=== PATIENT | male | born 1975 | race Caucasian/White ===

== ENCOUNTER 2022-05-23 11:14 | Emergency (ER) | payer OTHER, SELFPAY ==
[2022-05-23 11:31] VITALS: BP 114/83; PULSE 112; RESP 20; TEMP 37.9; O2SAT 99
--- NOTE | 2022-05-23 12:09 | ED.URI ---
HPI - URI/Sore Throat General Chief Complaint: Upper Respiratory Infection Stated Complaint: cold symptoms Source: patient Mode of arrival: ambulatory Limitations: no limitations History of Present Illness HPI Narrative: 47-year-old male presents to [facility] in with cough, congestion, runny nose and low-grade fever since yesterday. Patient reports that his children were recently ill with similar symptoms. patient denies shortness of breath, wheezing, nausea, vomiting or diarrhea. Patient has been taking [id number] ibuprofen with minimal relief. Patient has not received an influenza vaccine MD elicited complaint: fever, cough, rhinorrhea and nasal congestion Onset (ago): day(s) (1) Able to tolerate fluids by mouth: Yes Treatments prior to arrival: ibuprofen Related Data Home Medications Medication Instructions Recorded Confirmed lisinopril 20 1 tablet DAILY 05/23/22 05/23/22 mg-hydrochlorothiazide 12.5 mg tablet Allergies Allergy/AdvReac Type Severity Reaction Status Date / Time No Known Allergies Allergy Verified 05/23/22 11:39 Review of Systems Constitutional: Constitutional: Reports chills, Denies fatigue and Reports fever(s) ENT: Denies vertigo and Denies dizziness Respiratory: Respiratory: Denies chest congestion, Reports cough, Denies dyspnea and Denies wheezing Gastrointestinal: Gastrointestinal: Denies abdominal pain, Denies diarrhea, Denies nausea and Denies vomiting Integumentary/Breasts: Skin/Breast: Denies rash Neurologic: Denies dizziness Allergic/Immunologic: Allergic/Immunologic: Denies lip swelling, Denies throat swelling, Denies tongue swelling and Denies wheezing PMFSH Comments At time of signature, I agree with nursing past medical, surgical, social and family history. There is no relevant family history pertinent to the presenting complaint. Exam Const: General: healthy appearing Nutritional Appearance: well nourished Orientation/consciousness: patient oriented x3 Limitations: no limitations HENMT: Head: normal to inspection Ears: external ears normal and TM's normal bilaterally Face/Nose/Sinus: Normal external nose present Face and sinus: normal facial exam and sinuses nontender Mouth: Yes Normal oral and palatal mucosa present Teeth and gingiva: dentition normal Throat: posterior oropharynx normal and uvula midline Eyes: Conjunctivae: conjunctivae normal Neck: Neck: normal visual inspection Resp: Effort & Inspection: normal respiratory effort and not labored Auscultation: clear to auscultation bilaterally, no crackles, no rales, no rhonchi and no wheezes Cardio: Rate: regular rate Rhythm: regular rhythm Heart sounds: no murmurs Skin: General skin exam: normal color Rashes: no rashes Wounds: no wounds Neuro: General: patient oriented x3 Cranial nerves: Yes Nystagmus not present Speech: normal speech Gait exam (Neuro): Normal gait present Psych: Mental Status: mental status grossly normal Affect: normal affect Attitude: cooperative Course Course Level of Care: Express Care Visit Vital Signs Vital signs: Vital Signs Temperature 37.9 C H 05/23/22 11:31 Pulse Rate 112 H 05/23/22 11:31 Respiratory Rate 20 05/23/22 11:31 Blood Pressure 114/83 05/23/22 11:31 Pulse Oximetry 99 05/23/22 11:31 Oxygen Delivery Room Air 05/23/22 11:31 Temperature 37.9 C H 05/23/22 12:29 Pulse Rate 112 H 05/23/22 11:31 Respiratory Rate 20 05/23/22 11:31 Blood Pressure 114/83 05/23/22 11:31 Pulse Oximetry 99 05/23/22 11:31 Oxygen Delivery Room Air 05/23/22 11:31 MDM - URI/Sore Throat MDM Narrative Medical decision making narrative: Discussed positive influenza results with patient. Patient understands that he is to self quarantine. Patient agrees to take Tamiflu as prescribed and tests positive for cough. Patient reached proceed to the emergency room if symptoms worsen Differential Diagnosis Differential diagnosis: Un
[2022-05-23 12:29] VITALS: TEMP 37.9
[2022-05-23] MEDS: ACETAMINOPHEN 500 MG TABLET 1000 MG PO (12:29)
== END 2022-05-23 12:33 | disposition home or self-care (01) ==
PROVIDERS: Emergency Provider Nurse Practitioner Family
DX: J10.1 Influenza due to other identified influenza virus with other respiratory manifestations (principal); I10 Essential (primary) hypertension
CPT/HCPCS: 87804; 99203; A9270; G0463

== ENCOUNTER 2022-08-31 09:56 | Emergency (ER) | payer OTHER, SELFPAY ==
--- NOTE | 2022-08-31 10:06 | ED.NAVMDI ---
HPI - Nausea/Vomiting/Diarrhea General Chief complaint: Nausea/Vomiting/Diarrhea Stated complaint: Diarrhea,Headache Time Seen by Provider: 08/31/22 10:15 Source: patient Mode of arrival: ambulatory Limitations: no limitations History of Present Illness HPI Narrative: Shawn is a 47-year-old male patient presenting to the clinic today with complaints of diarrhea and headache that occurred on the 15th and 16th of this month. He reports that those symptoms have resolved however he is requesting a work note. He states that he is also feeling depressed. Reports that he had been on bupropion in the past for depression but has not been on for approximately 3 years. He states that he feels as though he is becoming more depressed. He denies any thoughts of self-harm, suicide, or homicide. He feels as though it is just hard to get up in the morning and get going and he just wants to lie in bed. Related Data Home Medications Medication Instructions Recorded Confirmed lisinopril 20 1 tablet DAILY 05/23/22 08/31/22 mg-hydrochlorothiazide 12.5 mg tablet Allergies Allergy/AdvReac Type Severity Reaction Status Date / Time No Known Allergies Allergy Verified 05/23/22 11:39 Review of Systems Review of Systems: Pertinent positives per HPI. Patient denies any fever, chills, rash, headache, visual changes, dizziness, cough, shortness of breath, chest pain, palpitations, nausea, vomiting, diarrhea, constipation, abdominal pain, or any urinary issues. PMFSH Comments At the time of my signature, I reviewed and agree with the nursing past medical, surgical, social, and family history. There is no relevant family history pertinent to the patient complaint. Exam Narrative: General: Well-developed, well nourished, in no apparent distress Head: Normocephalic, atraumatic Eyes: Pupils equally round and reactive to light bilaterally, EOM intact, sclera and conjunctive clear, no discharge, lids normal Ears: TMs intact and clear, ear canals clear, no drainage, grossly hearing normal. Nose: Nares patent, no discharge, no inflammation, no sinus tenderness. Mouth: Oral pharynx without lesions or masses, good dentition, MMM. Neck: Supple, trachea midline, no enlargement of anterior or posterior cervical nodes, no thyroid masses or goiter palpable. Cardio: Regular rate and rhythm, s1 and s2 normal, no murmur appreciated. Resp: Clear to auscultation bilaterally, no rhonchi, rales, wheezing or rubs Abdomen: Soft, pliable, nondistended, bowel sounds present all 4 quadrants, no organomegaly, nontender to palpation, no CVAT tenderness Psych: Mood-sad with depressed affect, intact judgment with poor insight Course Course Emergency Course: Portions of this record may have been created with voice recognition software. Level of Care: Express Care Visit Vital Signs Vital signs: Vital Signs Temperature 36.2 C L 08/31/22 10:11 Pulse Rate 114 H 08/31/22 10:11 Respiratory Rate 18 08/31/22 10:11 Blood Pressure 149/112 H 08/31/22 10:11 Pulse Oximetry 99 08/31/22 10:11 Oxygen Delivery Room Air 08/31/22 10:11 Temperature 36.2 C L 08/31/22 10:11 Pulse Rate 114 H 08/31/22 10:11 Respiratory Rate 18 08/31/22 10:11 Blood Pressure 149/112 H 08/31/22 10:11 Pulse Oximetry 99 08/31/22 10:11 Oxygen Delivery Room Air 08/31/22 10:11 Vital signs reviewed MDM - Nausea/Vomiting/Diarrhea MDM Narrative Medical decision making narrative: At the time of visit patient is resting comfortably on exam table. I suspect patient has a resolving viral syndrome/gastroenteritis. Concern today is depression. I will place him back on his bupropion 100 mg twice daily and recommend he follow-up with a PCP for further evaluation-continuation of medications. Crisis line information was discussed. Made aware that these medications will take time 4-6 weeks to get to his system and be at a therapeutic level, supportive measures were di
[2022-08-31 10:11] VITALS: BP 149/112; PULSE 114; RESP 18; TEMP 36.2; O2SAT 99
== END 2022-08-31 10:18 | disposition home or self-care (01) ==
PROVIDERS: Emergency Provider Nurse Practitioner Family
DX: K52.9 Noninfective gastroenteritis and colitis, unspecified (principal); B34.9 Viral infection, unspecified; F32.A Depression, unspecified; I10 Essential (primary) hypertension
CPT/HCPCS: 99213; G0463

== ENCOUNTER 2023-03-01 10:02 | Outpatient (CLI) | payer OTHER, SELFPAY ==
[2023-03-01 14:25] LABS: Basophils Percent Auto 0.7 % (0.2-1.2); Eosinophils Absolute Auto 0.2 K/mm3 (0-0.3); Eosinophils Percent Auto 3.3 % (0-4.4); Hemoglobin 15.5 g/dL (14.0-18.0); Immature Granulocyte Absolute 0.01 K/mm3 (0.00-0.031); Immature Granulocyte Percent A 0.2 % (0-0.5); Lymphocytes Absolute Auto 1.52 K/mm3 (0.9-3.2); Lymphocytes Percent Auto 26.3 % (18.3-44.2); Mean Corpuscular HGB Conc 33.7 g/dl (32-36); Mean Corpuscular Hemoglobin 32.3 pg (26-34); Mean Corpuscular Volume 95.8 fl (80-100); Mean Platelet Volume 10.1 fl (7.4-10.4); Monocytes Absolute Auto 0.5 K/mm3 (0.1-0.6); Monocytes Percent Auto 8.8 % (2.6-8.5); Neutrophils Absolute Auto 3.5 K/mm3 (1.3-6.7); Neutrophils Percent Auto 60.7 % (45.5-73.1); Platelet Count Result 211 k/mm3 (150-375); Red Cell Distribution Width 11.9 % (11.5-14.5); White Blood Count 5.8 K/mm3 (4.5-10.0)
[2023-03-01 14:28] LABS: Potassium 4.2 mmol/L (3.4-5.0); Sodium 135 mmol/L (137-145)
[2023-03-01 14:29] LABS: Alanine Aminotransferase 71 U/L (6-50); Albumin Level 4.1 g/dL (3.5-5.1); Alkaline Phosphatase 77 U/L (38-126); Anion Gap 1 mmol/L (8-16); Aspartate Amino Transferase 60 U/L (17-59); Bilirubin,Total 0.9 mg/dL (0.2-1.3); Blood Urea Nitrogen 11 mg/dL (9-20); Calcium 8.9 mg/dL (8.4-10.2); Carbon Dioxide 31 mmol/L (22-30); Chloride 103 mmol/L (98-107); Cholesterol 211 mg/dL (0-200); Estimated Glomerular Filt Rate > 60; Glucose 94 mg/dL (65-110); HDL Direct 42 mg/dL; Triglycerides 273 mg/dL (<150)
[2023-03-01 14:40] LABS: LDL Cholesterol Direct 124 mg/dL
== END 2023-03-01 10:03 | disposition home or self-care (01) ==
LOC: ANHGOSHLAB 10:04
PROVIDERS: PCP Family Medicine; Visit Provider Family Medicine
DX: R53.83 Other fatigue (principal); I10 Essential (primary) hypertension; Z13.220 Encounter for screening for lipoid disorders
CPT/HCPCS: 36415; 80053; 80061; 85025

== ENCOUNTER 2023-03-22 08:55 | Outpatient (CLI) | payer OTHER, SELFPAY ==
[2023-03-22 13:21] LABS: Sodium 137 mmol/L (137-145)
[2023-03-22 13:22] LABS: Alanine Aminotransferase 52 U/L (6-50); Albumin Level 4.1 g/dL (3.5-5.1); Alkaline Phosphatase 65 U/L (38-126); Anion Gap 6 mmol/L (8-16); Aspartate Amino Transferase 48 U/L (17-59); Bilirubin,Total 0.7 mg/dL (0.2-1.3); Blood Urea Nitrogen 12 mg/dL (9-20); Calcium 9.1 mg/dL (8.4-10.2); Carbon Dioxide 30 mmol/L (22-30); Chloride 101 mmol/L (98-107); Estimated Glomerular Filt Rate > 60; Glucose 90 mg/dL (65-110); Potassium 3.8 mmol/L (3.4-5.0)
== END 2023-03-22 08:56 | disposition home or self-care (01) ==
PROVIDERS: PCP Family Medicine; Visit Provider Family Medicine
DX: Z13.228 Encounter for screening for other metabolic disorders (principal)
CPT/HCPCS: 36415; 80053

== ENCOUNTER 2023-10-04 12:16 | Emergency (ER) | payer OTHER, SELFPAY ==
--- NOTE | ~2023-10-04 | XR_ITS ---
EXAMINATION: XR hip BI 2V w AP pelvis DATE: 10/04/2023 13:04 INDICATION: Right hip pain. Fall. TECHNIQUE: An anteroposterior view of the pelvis and 2 views of each hip were obtained. COMPARISON: None. FINDINGS: There is a transcervical fracture right femoral neck. The distal fracture fragment demonstr ates 12 mm anterior displacement and 17 mm shortening. There is mild osteoarthritis of the hips. IMPRESSION: 1. Transcervical fracture of right femoral neck. 2. Mild osteoarthritis of the hips. Reviewed, dictated and finalized at location E.
[2023-10-04 12:17] VITALS: BP 152/79; PULSE 72; RESP 20; TEMP 36.4; O2SAT 99
[2023-10-04] MEDS: HYDROmorphone HCL INJ (*CRX) 1 MG/ML SYR IV PUSH ×2 (12:35→14:48)
[2023-10-04] MEDS: ONDANSETRON INJ 4 MG/2 ML VIAL IV PUSH (12:35)
[2023-10-04 12:50] LABS: Basophils Percent Auto 0.3 % (0.2-1.2); Eosinophils Absolute Auto 0.1 K/mm3 (0-0.3); Eosinophils Percent Auto 1.8 % (0-4.4); Hematocrit 43.6 % (42.0-52.0); Hemoglobin 14.7 g/dL (14.0-18.0); Immature Granulocyte Absolute 0.02 K/mm3 (0.00-0.031); Immature Granulocyte Percent A 0.3 % (0-0.5); Lymphocytes Absolute Auto 0.71 K/mm3 (0.9-3.2); Lymphocytes Percent Auto 10.7 % (18.3-44.2); Mean Corpuscular HGB Conc 33.7 g/dl (32-36); Mean Corpuscular Volume 94.8 fl (80-100); Monocytes Absolute Auto 0.3 K/mm3 (0.1-0.6); Monocytes Percent Auto 4.5 % (2.6-8.5); Neutrophils Absolute Auto 5.5 K/mm3 (1.3-6.7); Neutrophils Percent Auto 82.4 % (45.5-73.1); Platelet Count Result 156 k/mm3 (150-375); Red Cell Distribution Width 12.8 % (11.5-14.5); White Blood Count 6.6 K/mm3 (4.5-10.0)
[2023-10-04 13:01] LABS: Alanine Aminotransferase 37 U/L (6-50); Albumin Level 4.3 g/dL (3.5-5.1); Alkaline Phosphatase 94 U/L (38-126); Anion Gap 8 mmol/L (4-12); Aspartate Amino Transferase 52 U/L (17-59); Bilirubin,Total 1.2 mg/dL (0.2-1.3); Blood Urea Nitrogen 17 mg/dL (9-20); Calcium 9.5 mg/dL (8.4-10.2); Carbon Dioxide 23 mmol/L (22-30); Chloride 106 mmol/L (98-107); Estimated CRCL calculation 82 ml/min; Estimated Glomerular Filt Rate > 60; Glucose 122 mg/dL (65-110); Potassium 3.8 mmol/L (3.4-5.0); Sodium 137 mmol/L (137-145)
[2023-10-04 13:08] LABS: Prothrombin Time 13.2 Seconds (11.1-14.7)
[2023-10-04 14:10] VITALS: BP 139/90; PULSE 69; RESP 16; O2SAT 100
--- NOTE | 2023-10-04 14:30 | ED.LOWEXIN ---
HPI - Extremity Injury (Lower) General Chief Complaint: Extremity Injury, Lower Stated Complaint: hip injury Time Seen by Provider: 10/04/23 12:24 Related Data Allergies Allergy/AdvReac Type Severity Reaction Status Date / Time No Known Allergies Allergy Verified 07/05/23 15:11 Review of Systems Review of Systems: All systems reviewed & are unremarkable except as noted in HPI and below Constitutional: Constitutional: Reports no additional constitutional complaints Eyes: Eyes: Reports no additional eye complaints ENT: Reports system reviewed and no additional complaints, except as documented Cardiovascular: Cardiovascular: Reports no additional cardiovascular complaints Respiratory: Respiratory: Reports no additional respiratory complaints Musculoskeletal: Musculoskeletal: Reports as per HPI Integumentary/Breasts: Skin/Breast: Reports system reviewed and no additional complaints, except as docu Neurologic: Reports system reviewed and no additional complaints, except as documented [facility] Past Medical History Medical History HTN (hypertension) Family History Family History Father Hypertension Social History Social History Smoking status: Former smoker Smoking end date: 07/11/08 Alcohol intake: current Drinks per week: 18 Substance use: never Substance use type: does not use Current Housing: Decline to Answer Concerned About Future Housing: Decline to Answer Difficulty Paying Gas/Electric Bills: Decline to Answer Difficulty Paying for Meds: Decline to Answer Currently Unemployed: Decline to Answer Education: Decline to Answer Difficulty w/ Childcare or Family Care: Decline to Answer Exam Narrative: GENERAL: Well-appearing, well-nourished, and in no acute distress. HEAD: Normocephalic, atraumatic. EYES: PERRLA and EOMI. ENT: Nares clear, no rhinorrhea or epistaxis. Mucous membranes moist. NECK: Supple. CHEST: Clear to auscultation. No respiratory distress. HEART: Regular rate and rhythm. No murmur heard. Normal peripheral pulses. ABDOMEN: Soft, nontender, nondistended, normal active bowel sounds. EXTREMITIES: Normal range of motion. No edema. SKIN: Warm, dry, no rash. NEURO: No focal deficits. Alert and oriented x3. PSYCH: Normal mood and affect. Course Vital Signs Vital signs: Vital Signs Temperature 36.4 C L 10/04/23 12:17 Pulse Rate 72 10/04/23 12:17 Respiratory Rate 20 10/04/23 12:17 Blood Pressure 152/79 H 10/04/23 12:17 Pulse Oximetry 99 10/04/23 12:17 Oxygen Delivery Room Air 10/04/23 12:17 Temperature 36.4 C L 10/04/23 12:17 Pulse Rate 72 10/04/23 15:18 Respiratory Rate 17 10/04/23 15:18 Blood Pressure 136/97 H 10/04/23 15:18 Pulse Oximetry 99 10/04/23 15:18 Oxygen Delivery Room Air 10/04/23 12:17 MDM - Extremity Injury (Lower) Lab Data 10/04/23 12:43 10/04/23 12:43 Labs: Lab Results 10/04/23 Range/Units 12:43 WBC 6.6 (4.5-10.0) K/mm3 RBC 4.60 (4.6-6.20) M/mm3 Hgb 14.7 (14.0-18.0) g/dL Hct 43.6 (42.0-52.0) % MCV 94.8 (80-100) fl MCH 32.0 (26-34) pg MCHC 33.7 (32-36) g/dl RDW 12.8 (11.5-14.5) % Plt Count 156 (150-375) k/mm3 MPV 10.0 (7.4-10.4) fl Immature Gran % (Auto) 0.3 (0-0.5) % Neut % (Auto) 82.4 H (45.5-73.1) % Lymph % (Auto) 10.7 L (18.3-44.2) % [place] % (Auto) 4.5 (2.6-8.5) % Eos % (Auto) 1.8 (0-4.4) % Baso % (Auto) 0.3 (0.2-1.2) % Lymph # (Auto) 0.71 L (0.9-3.2) K/mm3 [place] # (Auto) 0.3 (0.1-0.6) K/mm3 Eos # (Auto) 0.1 (0-0.3) K/mm3 Baso # (Auto) 0.0 (0.0-0.1) K/mm3 Abs Immat Gran (auto) 0.02 (0.00-0.031) K/mm3 Absolute Neuts (auto) 5.5 (1.3-6.7) K/mm3 Absolute Nucleated RBC 0.000 (0.0-0.012) K/mm3 Nucleated RBC % 0.0 (0.0-0.2)
--- NOTE | 2023-10-04 14:31 | ED.LOWEXIN ---
HPI - Extremity Injury (Lower) General Chief Complaint: Extremity Injury, Lower Stated Complaint: hip injury Time Seen by Provider: 10/04/23 12:24 Source: patient Mode of arrival: EMS Limitations: no limitations History of Present Illness HPI Narrative: 48-year-old with a history of hypertension presents to the ER with a complaint of right hip pain. Patient states that he was skating on ice fell on his right hip he stated that he felt a pop in his hip I unable to bear weight. She denies any head or neck injuries. MD complaint: hip injury Place: street/outdoors Severity: moderate Relieving factors: immobilization Exacerbating factors: movement Context: fall Associated symptoms: snap/pop sensation Other symptoms: none Related Data Allergies Allergy/AdvReac Type Severity Reaction Status Date / Time No Known Allergies Allergy Verified 07/05/23 15:11 Review of Systems Review of Systems: All systems reviewed & are unremarkable except as noted in HPI and below Constitutional: Constitutional: Reports no additional constitutional complaints Eyes: Eyes: Reports no additional eye complaints ENT: Reports system reviewed and no additional complaints, except as documented Cardiovascular: Cardiovascular: Reports no additional cardiovascular complaints Respiratory: Respiratory: Reports no additional respiratory complaints Gastrointestinal: Gastrointestinal: Reports no additional gastrointestinal complaints Musculoskeletal: Musculoskeletal: Reports as per HPI Integumentary/Breasts: Skin/Breast: Reports system reviewed and no additional complaints, except as docu Neurologic: Reports system reviewed and no additional complaints, except as documented Psychiatric: Psychiatric: Reports no additional psychiatric complaints PMFSH Past Medical History Medical History HTN (hypertension) Family History Family History Father Hypertension Social History Social History Smoking status: Former smoker Smoking end date: 07/11/08 Alcohol intake: current Drinks per week: 18 Substance use: never Substance use type: does not use Current Housing: Decline to Answer Concerned About Future Housing: Decline to Answer Difficulty Paying Gas/Electric Bills: Decline to Answer Difficulty Paying for Meds: Decline to Answer Currently Unemployed: Decline to Answer Education: Decline to Answer Difficulty w/ Childcare or Family Care: Decline to Answer Exam Narrative: He GENERAL: Well-appearing, well-nourished, and in no acute distress. HEAD: Normocephalic, atraumatic. EYES: PERRLA and EOMI. ENT: Nares clear, no rhinorrhea or epistaxis. Mucous membranes moist. NECK: Supple. CHEST: Clear to auscultation. No respiratory distress. HEART: Regular rate and rhythm. No murmur heard. Normal peripheral pulses. ABDOMEN: Soft, nontender, nondistended, normal active bowel sounds. EXTREMITIES: Marked tenderness in the right hip with gentle movement. SKIN: Warm, dry, no rash. NEURO: No focal deficits. Alert and oriented x3. PSYCH: Normal mood and affect. Course Course Emergency Course: Patient states his pain is slightly improved with fentanyl and IV hydromorphone. Informed about his lab work, x-ray findings. I discussed with Dr. Grant recommended patient to be transferred to [facility]. I did discuss with at [facility] accepted pt. Family was notified . Vital Signs Vital signs: Vital Signs Temperature 36.4 C L 10/04/23 12:17 Pulse Rate 72 10/04/23 12:17 Respiratory Rate 20 10/04/23 12:17 Blood Pressure 152/79 H 10/04/23 12:17 Pulse Oximetry 99 10/04/23 12:17 Oxygen Delivery Room Air 10/04/23 12:17 Temperature 36.4 C L 10/04/23 12:17 Pulse Rate 69 10/04/23 14:10 Respiratory Rate 16 10/04/23 14:10 Blood Pressure 13
--- NOTE | 2023-10-04 14:44 | PC.NURSE ---
Pt reports having increased pain. made aware. Dr. Aide DUMONT 1mg dilaudid IVP stat.
--- NOTE | 2023-10-04 14:45 | PC.NURSE ---
TARIQ Dunbar called for report at [facility]
[2023-10-04 15:18] VITALS: BP 136/97; PULSE 72; RESP 17; O2SAT 99
== END 2023-10-04 15:50 | disposition short-term general hospital (02) ==
PROVIDERS: Emergency Provider Family Medicine; PCP Family Medicine
DX: S72.001A Fracture of unspecified part of neck of right femur, initial encounter for closed fracture (principal); I10 Essential (primary) hypertension; V00.211A Fall from ice-skates, initial encounter
CPT/HCPCS: 36415; 73502; 73521; 80053; 85025; 85610; 96374; 96375; 96376; 99285; J1170; J2405

== ENCOUNTER 2024-03-23 11:46 | Emergency (ER) | payer OTHER, SELFPAY ==
[2024-03-23 12:16] VITALS: BP 138/97; PULSE 117; RESP 16; TEMP 36.7; O2SAT 97
--- NOTE | 2024-03-23 12:40 | ED.BACK ---
HPI - Back Pain/Injury General Chief Complaint: Back Pain/Injury Stated Complaint: Back spasm Time Seen by Provider: 03/23/24 12:41 Source: patient, RN notes reviewed and old records reviewed Mode of arrival: ambulatory Limitations: no limitations History of Present Illness HPI Narrative: 48 year [facility] male [facility] with complaints of lower back pain with some radiation of pain to his right buttock and to his right groin area for the past 2 days. Patient report no known injury to his back does do a lot of walking at work but no recent heavy lifting. Patient fell on the ice in September of this year and had right femoral neck fracture and had surgery at [facility] with bolt,Plate and screw repair to right hip. Patient reports that it feels like he is having some spasms in his low back area.Patient has been taking some Ibuprofen and some Aleve for his symptoms. MD elicited complaint: back pain Pertinent past history: prior back pain Onset (ago): day(s) (2) Pain scale (0-10): 4 Quality: aching and spasming Treatments prior to arrival: NSAIDS Work related injury: No Related Data Allergies Allergy/AdvReac Type Severity Reaction Status Date / Time No Known Allergies Allergy Verified 03/23/24 12:34 Review of Systems Review of Systems: CONSTITUTIONAL: Denies fever, chills, or sweats. EYES: Denies visual changes, redness, or discharge. ENT: Denies rhinorrhea, congestion, sore throat, or otalgia. CARDIOVASCULAR: Denies chest pain, palpitations, or edema. RESPIRATORY: Denies cough or dyspnea. GASTROINTESTINAL: Denies abdominal pain, nausea, vomiting, or diarrhea. GENITOURINARY: Denies dysuria or hematuria. SKIN: Denies rash or itching. MUSCULOSKELETAL: reports low back pain with radiation right buttock and to right groin,no other joint pain, or myalgia. NEUROLOGIC: Denies headache, numbness, or weakness. PSYCHIATRIC: Denies anxiety or depression. All systems reviewed & are unremarkable except as noted in HPI and below PMFSH Past Medical History Medical History (Updated 03/23/24 @ 17:47 by Claritza Musa NP) Depression HTN (hypertension) Surgical History Surgical History History of hip surgery Family History Family History Father Hypertension Social History Social History Smoking status: Former smoker Smoking end date: 07/11/08 Alcohol intake: current Drinks per week: 18 Substance use: never Substance use type: does not use Current Housing: Decline to Answer Concerned About Future Housing: Decline to Answer Difficulty Paying Gas/Electric Bills: Decline to Answer Difficulty Paying for Meds: Decline to Answer Currently Unemployed: Decline to Answer Education: Decline to Answer Difficulty w/ Childcare or Family Care: Decline to Answer Comments At time of signature, agree with nursing past medical, surgical, social and family history. There is no relevant family history pertinent to the presenting complaint Exam Narrative: GENERAL: Well-appearing, well-nourished, and in no acute distress. HEAD: Normocephalic, atraumatic. EYES: PERRLA and EOMI. ENT: Nares clear, no rhinorrhea or epistaxis. Mucous membranes moist. NECK: Supple. no lymphadenopathy CHEST: Clear to auscultation. No respiratory distress.SAO2 97% on room air HEART: Regular rate and rhythm. No murmur heard. Normal peripheral pulses. ABDOMEN: Soft, nontender, nondistended, normal active bowel sounds. EXTREMITIES: Normal range of motion. No edema.positive for low back pain with some radiation to right buttock and right groin, denies any saddle parasthesia or any difficulty with bowel or bladder function, gait steady on ambulation. reports spasms to lower back SKIN: Warm, dry, no rash. NEURO: No focal deficits. Alert and oriented x3. Course Course Ro
== END 2024-03-23 13:00 | disposition home or self-care (01) ==
PROVIDERS: Emergency Provider Registered Nurse; PCP Family Medicine
DX: M54.41 Lumbago with sciatica, right side (principal); Z87.891 Personal history of nicotine dependence; I10 Essential (primary) hypertension
CPT/HCPCS: 99213; G0463

== ENCOUNTER 2024-05-11 11:48 | Emergency (ER) | payer OTHER, SELFPAY ==
--- NOTE | 2024-05-11 11:54 | ED_ITS ---
HPI - Back Pain/Injury General Chief Complaint: Back Pain/Injury Stated Complaint: Back Pain Time Seen by Provider: 05/11/24 12:02 Source: patient, RN notes reviewed and old records reviewed Mode of arrival: ambulatory Limitations: no limitations History of Present Illness HPI Narrative: 49-year-old male presents to the [facility] with 4 day history of increased right lower back pain. Recent femoral head fracture, recently seen for similar. Denies any of retention of bowel or bladder. No midline tenderness. Denies any abdominal pain. Walks with a mild limp 2nd to previous hip surgery, right Denies any fevers. Onset (ago): day(s) (4) Related Data Home Medications Medication Instructions Recorded Confirmed Enclomiphene See Rx Instructions .Route .COMPLEX 05/11/24 05/11/24 testosterone cypionate 200 mg/mL 200 mg IM WEEKLY 05/11/24 05/11/24 intramuscular oil Allergies Allergy/AdvReac Type Severity Reaction Status Date / Time No Known Allergies Allergy Verified 05/11/24 11:56 Review of Systems Review of Systems: All systems reviewed & are unremarkable except as noted in HPI and below Constitutional: Constitutional: Reports no additional constitutional complaints ENT: Reports system reviewed and no additional complaints, except as documented Cardiovascular: Cardiovascular: Reports no additional cardiovascular complaints, Denies chest pain and Denies dyspnea Respiratory: Respiratory: Reports no additional respiratory complaints, Denies chest congestion, Denies cough and Denies dyspnea Gastrointestinal: Gastrointestinal: Reports no additional gastrointestinal complaints, Denies abdominal pain, Denies nausea and Denies vomiting Musculoskeletal: Musculoskeletal: Reports as per HPI and Reports back pain Integumentary/Breasts: Skin/Breast: Reports system reviewed and no additional complaints, except as docu PMFSH Past Medical History Medical History Depression HTN (hypertension) Surgical History Surgical History History of hip surgery Family History Family History Father Hypertension Social History Social History Smoking status: Former smoker Smoking end date: 07/11/08 Alcohol intake: current Drinks per week: 18 Substance use: never Substance use type: does not use Current Housing: Decline to Answer Concerned About Future Housing: Decline to Answer Difficulty Paying Gas/Electric Bills: Decline to Answer Difficulty Paying for Meds: Decline to Answer Currently Unemployed: Decline to Answer Education: Decline to Answer Difficulty w/ Childcare or Family Care: Decline to Answer Comments At the time of my signature, I reviewed and agree with the nursing past medical, surgical, social, and family history. There is no relevant family history pertinent to the patient complaint. Exam Const: General: cooperative, healthy appearing, comfortable, no acute distress, well developed, alert and well nourished Nutritional Appearance: well nourished Orientation/consciousness: patient oriented x3 Limitations: no limitations HENMT: Head: normal to inspection Ears: hearing grossly normal bilaterally and external ears normal Face/Nose/Sinus: Normal external nose present, normal facial exam and face symmetric Face and sinus: normal facial exam and face symmetric Eyes: General: appearance normal, both eyes and all related structures Alignment and Position: alignment normal Periorbital: periorbital findings normal Neck: Neck: normal visual inspection, full ROM, no lymphadenopathy and no meningeal signs Chest: Chest palpation & inspection: normal inspection of the chest Resp: Effort & Inspection: normal respiratory effort and able to speak in complete sentences Cardio: Rate: regular rate GI: GI Palp: No abdominal tenderness Back/Spine/Pelvis: Back: no CVA tenderness Thoracic/Lumbar Spine: paraspinal muscle tenderness on the right in the lower lumbar, No thoracic spinal tenderness and No lumbar spinal tenderness Skin: General skin exam: normal color and no rashes or lesions noted Lesions: no lesions Rashes: no rashes Wounds: no wounds Neuro: General: patient oriented x3, tone normal, moves all extremities and no meningeal signs Cognition (Neuro): normal cognition Speech: normal speech Gait exam (Neuro): gait abnormal (Mild limp favoring right side) Extrem: General: normal to inspection, full ROM and capillary refill normal Psych: Appearance: grossly normal and well kempt Mental Status: mental status grossly normal Speech and movement: Normal speech and movement present and Clear speech present Affect: normal affect Attitude: cooperative Course Course Level of Care: Express Care Visit Vital Signs Vital signs: Vital Signs Temperature 98.2 F 05/11/24 12:00 Pulse Rate 95 05/11/24 12:00 Respiratory Rate 18 05/11/24 12:00 Blood Pressure 141/93 H 05/11/24 12:00 Pulse Oximetry 99 05/11/24 12:00 Oxygen Delivery Room Air 05/11/24 12:00 Temperature 98.2 F 05/11/24 12:01 Pulse Rate 95 05/11/24 12:01 Respiratory Rate 18 05/11/24 12:01 Blood Pressure 141/93 H 05/11/24 12:01 Pulse Oximetry 99 05/11/24 12:01 Oxygen Delivery Room Air 05/11/24 12:01 Reviewed MDM - Back Pain/Injury MDM Narrative Medical decision making narrative: Patient sitting comfortably in exam room. Nontoxic, vitals stable. Patient presents with an acute on chronic right low back pain. Patient also requesting a work note dated 2 days ago. Patient stated that if he does not have 1 that he will be fired from his job. Explained to patient that we cannot alter medical documents. Explained to patient I would be happy to give him a note for today with an additional couple of days off. Offered to send in additional muscle relaxers, patient states that he has enough at home. Patient left upset that we are unable to alter a work note, dated for 2 days ago Discharge instructions reviewed with patient, as well as provided in writing per nursing staff. The instructions also include specific and strict return/GO TO THE ER as well as f/u information. All questions have been answered, and the patient deny any further questions with discharge and discharge plan. Some parts of this dictation were generated by voice recognition software and may contain typographical and/or grammatical inaccuracies. Differential Diagnosis Differential diagnosis: Likely lumbar radiculopathy, sciatica and strain of lumbar region Critical Care Time Critical Care Time Critical Care Time: No Discharge Plan Discharge Clinical Impression: Right lumbar pain Patient Disposition: Home, Self-Care Condition: Stable Instructions: Antibiotic Form, Low Back Strain (ED), Lower Back Exercises (ED) Additional Instructions: Take ibuprofen as directed to decrease inflammation and to help pain. Take Flexeril (muscle relaxer) as directed. Do not drink, drive, operate machinery, or do anything dangerous while taking this medication Exercise:Combine aerobic exercise, like walking or swimming, with specific exercises to keep the muscles in your back and abdomen strong and flexible. Proper Lifting:Be sure to lift heavy items with your legs, not your back. Do not bend over to pick something up. Keep your back straight and bend at your knees. Weight:Maintain a healthy weight. Being overweight puts added stress on your lower back. Avoid Smoking:Both the smoke and the nicotine cause your spine to age faster than normal. Proper Posture:Good posture is important for avoiding future problems. A therapist can teach you how to safely stand, sit, and lift. Use warm moist heat to help with pain. Using topical such as Biofreeze, Zeeshan-Carrasco or Aspercreme can also help Follow up with Primary provider in 2-3 days, This may become a chronic condition and they will be the one to help manage your pain and order additional testing. Go to the nearest ER if you develop problems with bladder/bowel function, weakness or loss of feeling in one or both of your legs. Patient Language: Slovenian Prescriptions: No Action testosterone cypionate 200 mg/mL oil 200 mg IM WEEKLY Enclomiphene See Rx Instructions .ROUTE .COMPLEX Rx Instructions: 25 mg orally ;complex directions lisinopril-hydrochlorothiazide 20-12.5 mg tablet 1 tablet PO DAILY Qty: 90 1RF Follow-up/Referrals: Herbert Adrian DO [Primary Care Provider] - 1 Week ([facility] follow-up) Stand Alone Forms: Work/School Release IP Time of Disposition: 12:19
[2024-05-11 12:00] VITALS: BP 141/93; PULSE 95; RESP 18; TEMP 36.8; O2SAT 99
[2024-05-11 12:01] VITALS: BP 141/93; PULSE 95; RESP 18; TEMP 36.8; O2SAT 99
== END 2024-05-11 12:20 | disposition home or self-care (01) ==
PROVIDERS: Emergency Provider Nurse Practitioner; PCP Family Medicine
DX: M54.50 Low back pain, unspecified (principal); Z87.891 Personal history of nicotine dependence; I10 Essential (primary) hypertension
CPT/HCPCS: 99212; G0463

== ENCOUNTER 2024-11-28 08:10 | Outpatient (CLI) | payer OTHER, SELFPAY ==
[2024-11-28 13:02] LABS: Hematocrit 54.1 % (42.0-52.0); Hemoglobin 17.6 g/dL (14.0-18.0); Mean Corpuscular HGB Conc 32.5 g/dl (32-36); Mean Corpuscular Hemoglobin 30.4 pg (26-34); Mean Corpuscular Volume 93.6 fl (80-100); Mean Platelet Volume 10.7 fl (7.4-10.4); Platelet Count Result 230 k/mm3 (150-375); Red Blood Count 5.78 M/mm3 (4.6-6.20); Red Cell Distribution Width 13.2 % (11.5-14.5); White Blood Count 5.9 K/mm3 (4.5-10.0)
[2024-11-28 13:33] LABS: Alanine Aminotransferase 53 U/L (6-50); Albumin Level 4.8 g/dL (3.5-5.1); Alkaline Phosphatase 62 U/L (38-126); Anion Gap 12 mmol/L (4-12); Aspartate Amino Transferase 66 U/L (17-59); Bilirubin,Total 0.9 mg/dL (0.2-1.3); Blood Urea Nitrogen 18 mg/dL (9-20); Calcium 9.8 mg/dL (8.4-10.2); Carbon Dioxide 25 mmol/L (22-30); Chloride 106 mmol/L (98-107); Cholesterol 209 mg/dL (0-200); Estimated Glomerular Filt Rate 60; Glucose 80 mg/dL (65-110); HDL Direct 34 mg/dL; Potassium 4.5 mmol/L (3.4-5.0); Sodium 143 mmol/L (137-145); Triglycerides 129 mg/dL (<150)
[2024-11-28 13:44] LABS: LDL Cholesterol Direct 138 mg/dL
== END 2024-11-28 08:11 | disposition home or self-care (01) ==
LOC: ANHGOSHLAB 08:10
PROVIDERS: PCP Nurse Practitioner Family; Visit Provider Nurse Practitioner Family
DX: E78.5 Hyperlipidemia, unspecified (principal); I10 Essential (primary) hypertension; R73.01 Impaired fasting glucose; E66.9 Obesity, unspecified; Z76.89 Persons encountering health services in other specified circumstances; Z13.29 Encounter for screening for other suspected endocrine disorder
CPT/HCPCS: 36415; 80053; 80061; 84443; 85027

== ENCOUNTER 2025-04-19 11:33 | Emergency (ER) | payer OTHER, SELFPAY ==
[2025-04-19 11:43] VITALS: BP 141/96; PULSE 103; RESP 18; TEMP 36.7; O2SAT 95
--- NOTE | 2025-04-19 11:56 | ED_ITS ---
HPI - Back Pain/Injury General Chief Complaint: Back Pain/Injury Stated Complaint: back pain Time Seen by Provider: 04/19/25 11:56 Source: patient Mode of arrival: ambulatory Limitations: no limitations History of Present Illness HPI Narrative: 50 y/o male presented for c/o right lower back pain. Onset one week. Endorses he has these flares of pain occasionally due to a previous hip fracture 1 year ago, and usually the pain resolves after about 5 days of taking NSAIDs. Has been taking ibuprofen and aleve but pain has persisted. Denies pain radiating into the hips or legs, numbness, tingling, weakness of the lower extremities, or change in gait, saddle paresthesia or loss of bowel or bladder. Related Data Allergies Allergy/AdvReac Type Severity Reaction Status Date / Time No Known Allergies Allergy Verified 04/19/25 11:42 Review of Systems Review of Systems: CONSTITUTIONAL: Denies body aches, fever, chills CARDIOVASCULAR: Denies chest pain, palpitations, or edema. RESPIRATORY: Denies cough or dyspnea. GASTROINTESTINAL: Denies abdominal pain, nausea, vomiting, or diarrhea. SKIN: Denies rash or wounds. MUSCULOSKELETAL: reports back pain NEUROLOGIC: Denies numbness, tingling, or weakness. All systems reviewed & are unremarkable except as noted in HPI and below PMFSH Past Medical History Medical History HTN (hypertension) Depression Surgical History Surgical History History of hip surgery Family History Family History Father Hypertension Social History Social History Smoking status: Former smoker Smoking end date: 07/11/08 Alcohol intake: current Drinks per week: 18 Substance use: never Substance use type: does not use Current Housing: Decline to Answer Concerned About Future Housing: Decline to Answer Difficulty Paying Gas/Electric Bills: Decline to Answer Difficulty Paying for Meds: Decline to Answer Currently Unemployed: Decline to Answer Education: Decline to Answer Difficulty w/ Childcare or Family Care: Decline to Answer Comments At time of signature, I have reviewed and agree with nursing past medical, surgical, social and family history unless otherwise noted. Please see nursing chart for further information. There is no relevant family history pertinent to the presenting complaint Exam Narrative: GENERAL: Well-appearing EYES: conjunctivae clear NECK: Supple. full ROM CHEST: Speaks in full sentences. No respiratory distress. HEART: Regular rate and rhythm. Normal and equal peripheral pulses. MUSC: No Vertebral point tenderness. Tender to right lower back/hip. BLEs with normal strength and sensation, normal range of motion. No open wounds or rash. pulse palpable and equal bilaterally, skin warm, dry, pink. Capillary refill less than 3 seconds. Gait steady. SKIN: Warm, dry, no rash. NEURO: Alert and oriented x3. Course Course Emergency Course: Patient is aware of diagnosis, understands and agrees to treatment plan. Anticipatory guidance given. Patient agrees to follow-up as directed and is aware of reasons to seek care at the emergency department. Portions of this record may have been created with voice recognition software Level of Care: Express Care Visit Vital Signs Vital signs: Vital Signs Temperature 98.0 F 04/19/25 11:43 Pulse Rate 103 H 04/19/25 11:43 Respiratory Rate 18 04/19/25 11:43 Blood Pressure 141/96 H 04/19/25 11:43 Pulse Oximetry 95 04/19/25 11:43 Temperature 98.0 F 04/19/25 11:43 Pulse Rate 103 H 04/19/25 11:43 Respiratory Rate 18 04/19/25 11:43 Blood Pressure 141/96 H 04/19/25 11:43 Pulse Oximetry 95 04/19/25 11:43 Reviewed MDM - Back Pain/Injury MDM Narrative Medical decision making narrative: Discussed physical exam findings and RX. Advised supportive measures and s/s to go to the ER. Pt is stable and appropriate for outpt treatment and follow up with pcp; agreeable to plan. Differential Diagnosis Differential diagnosis: Likely lumbar radiculopathy, sciatica, strain of lumbar region, renal colic, pyelonephritis and discitis Discharge Plan Discharge Clinical Impression: Low back pain Patient Disposition: Home Condition: Stable Instructions: Acute Low Back Pain (ED) Additional Instructions: Please follow up with your Primary Care Doctor within 72 hours - call for an appointment. Avoid lifting. pushing. pulling, or anything that worsens the pain. Walking and other gentle exercising several times a week has been shown to improve back pain; strict bed rest is not recommended. Take steroid as directed Tylenol 1000mg every 8 hours Take muscle relaxers every 8 hours as needed for muscle spasm- do not drive or make any important decisions while on this medication for it can make you drowsy. Over the counter pain cream like icy/hot or biofreeze, or Salon pas/lidocaine 4% patch. You may apply heat or cold to the area as needed. If you experience any worsening pain, swelling, numbness, weakness, problems with bladder or bowel function, weakness or loss of feeling in one or both of your legs, or any other serious concerns. Patient Language: Hebrew Prescriptions: New cyclobenzaprine 10 mg tablet 10 mg PO TID PRN (Reason: muscle spasm) Qty: 10 0RF prednisone 50 mg tablet 50 mg PO DAILY Qty: 5 0RF Follow-up/Referrals: UNKNOWN,DOCTOR [Primary Care Provider] Time of Disposition: 12:04
== END 2025-04-19 12:11 | disposition home or self-care (01) ==
PROVIDERS: Emergency Provider Nurse Practitioner Family
DX: M54.50 Low back pain, unspecified (principal); I10 Essential (primary) hypertension; Z87.891 Personal history of nicotine dependence
CPT/HCPCS: 99213; G0463